=== PATIENT | male | born 2000 | race Caucasian/White ===

== ENCOUNTER 2020-05-10 17:17 | Emergency (ER) | payer SELFPAY ==
[~2020-05-10] VITALS: Ht 180.3 cm; Wt 68.3 kg
[2020-05-10 17:19] VITALS: BP 119/75
== END 2020-05-10 17:42 | disposition home or self-care (01) ==
LOC: ED 17:35
DX: J45.31 Mild persistent asthma with (acute) exacerbation (principal); F17.200 Nicotine dependence, unspecified, uncomplicated
CPT/HCPCS: 93005; 99283